=== PATIENT | female | born 1995 | race Caucasian/White ===

== ENCOUNTER 2019-10-04 07:25 | Inpatient (IN) ==
[2019-10-04] MEDS ORDERED: RINGER'S SOLUTION,LACTATED 1,000 ML IV ONE (08:50)
[2019-10-04] MEDS ORDERED: OXYTOCIN/DEXTROSE 5%-WATER 30 UNITS/500 ML BAG IV ONE ×2 (08:50→13:24)
[2019-10-04] MEDS ORDERED: ONDANSETRON 4 MG TAB.RAPDIS PO PRN (08:50)
[2019-10-04] MEDS ORDERED: LIDOCAINE HCL 50 ML VIAL PERI PRN (08:50)
[2019-10-04] MEDS ORDERED: BUTORPHANOL TARTRATE 2 MG/ML VIAL IV PRN ×2 (08:50)
[2019-10-04] MEDS ORDERED: SERTRALINE HCL 25 MG PO SCH (09:00)
[2019-10-04] MEDS ORDERED: SERTRALINE HCL 50 MG TABLET PO SCH ×2 (09:00→09:30)
--- NOTE | 2019-10-04 09:08 | HP ---
Chief Complaint - Chief Complaint Date of Service: 10/04/19 Time of Service: 09:01 Chief Complaint: SROM History of Present Illness: 24 yo @ 38w 0d who presents to labor and delivery with rupture of membranes at 0600. She had a large gush of fluid at home. She also reports regular ctx. She denies vb. Fetus is active. Medical History (Last Reviewed 10/04/19 @ 09:04 by Gavi Curran MD) Anemia Onset Date: 07/21/19 Depression Onset Date: Unknown Surgical History: Surgical History (Last Reviewed 10/04/19 @ 09:04 by Gavi Curran MD) No pertinent past surgical history Family History: Family History (Last Reviewed 10/04/19 @ 09:04 by Gavi Curran MD) Mother Alive and well Father Alive and well Social History: (Last Reviewed 10/04/19 @ 09:04 by Gavi Curran MD) Social History: Marital status: current occupational status: employed, unemployed Service: No Tobacco: Smoking Status: Former smoker Tobacco: How many years used: 7 Alcohol: alcohol intake: former Substance Use: substance use type: does not use Dietary Habits: caffeine: Yes Review Of Systems (GEN) - Review of Systems Generalized/Overall Review: Present: No Symptoms Reported Misc: All systems neg except as marked Immunizations: IMMUNIZATION HX Immunizations Up to Date Yes History of Influenza Vaccine No Hx Pneumococcal Vaccination No Allergies/Adverse Reactions: Allergies Allergy/AdvReac Type Severity Reaction Status Date / Time No Known Allergies Allergy Verified 09/28/19 16:02 Home Medications: HOME MEDICATIONS ferrous sulfate 325 mg (65 mg iron) tablet 325 mg PO DAILY #30 tab 07/21/19 [Last Taken 10/03/19 12:00] sertraline 25 mg tablet 25 mg PO DAILY #30 tab 08/03/19 [Last Taken 10/03/19 10:00] sertraline 50 mg tablet 50 mg PO DAILY #30 tab 08/03/19 [Last Taken 10/03/19 10:00] Vits96/Iron Fum/Folic [ S] 1 tab PO DAILY 09/22/19 [Last Taken 09/21/19 23:00] Exam - Exam Vital Signs: Vital Signs - Last Taken Temp 37.0 C 10/04/19 08:54 Pulse 78 10/04/19 08:54 Resp 18 10/04/19 08:54 BP 131/85 10/04/19 08:54 Pulse Ox 98 10/04/19 08:54 Constitutional: Present: Alert, Oriented x3, Cooperative, No distress ENT Exam: Present: hearing grossly normal Respiratory: Present: lungs clear, normal breath sounds Cardiovascular/Chest: Present: regular rate, rhythm Abdomen: Present: soft, nontender, nondistended Extremity: Present: non-tender, no calf tenderness Skin Exam: Present: normal color, warm/dry, no cyanosis Appearance: Present: appropriate appearance Eye contact: Present: cooperative Thoughts: Present: normal thought pattern Assessment/Plan - Narrative Narrative: 24 year old at 38w 0d 1. SROM and labor: Reassess cervical exam in 2 hours and if no cervical change will start pitocin 2. GBS negative: prophylaxis not indicated 3. Anemia on PO iron 4. Depression on sertraline 75 mg PO daily. Sertraline restarted on admission
[2019-10-04 09:10] LABS: Cocaine Ur Negative (NEGATIVE); Urine Barbiturate Negative (NEGATIVE); Urine Benzodiazepines Negative (NEGATIVE); Urine Opiates Negative (NEGATIVE); Urine PCP Negative (NEGATIVE); Urine THC Negative (NEGATIVE)
[2019-10-04] MEDS ORDERED: BUPIVACAINE HCL/0.9 % NACL/PF 250 ML EP PRN (09:21)
[2019-10-04] MEDS ORDERED: NALOXONE HCL 1 MG/1 ML SYRG IV PRN (09:21)
[2019-10-04] MEDS ORDERED: ONDANSETRON HCL/PF 2 MG/ML VIAL IV PRN (09:21)
--- NOTE | 2019-10-04 09:23 | ANES ---
Anesthesia Pre Procedure Eval Vitals/Labs: Last Vital Signs Temp 37.0 C 10/04/19 08:54 Pulse 78 10/04/19 08:54 Resp 18 10/04/19 08:54 BP 131/85 10/04/19 08:54 Pulse Ox 98 10/04/19 08:54 HOME MEDICATIONS ferrous sulfate 325 mg (65 mg iron) tablet 325 mg PO DAILY #30 tab 07/21/19 [Last Taken 10/03/19 12:00] sertraline 25 mg tablet 25 mg PO DAILY #30 tab 08/03/19 [Last Taken 10/03/19 10:00] sertraline 50 mg tablet 50 mg PO DAILY #30 tab 08/03/19 [Last Taken 10/03/19 10:00] Vits96/Iron Fum/Folic [ S] 1 tab PO DAILY 09/22/19 [Last Taken 09/21/19 23:00] Allergies/Adverse Reactions: Allergies Allergy/AdvReac Type Severity Reaction Status Date / Time No Known Allergies Allergy Verified 09/28/19 16:02 - Planned Procedure Planned Procedure: Labor epidural Medication List Reviewed:: Yes Allergies Verified: Yes Medical History (Last Reviewed 10/04/19 @ 09:04 by Gavi Curran MD) Anemia Onset Date: 07/21/19 Depression Onset Date: Unknown Surgical History (Last Reviewed 10/04/19 @ 09:04 by Gavi Curran MD) No pertinent past surgical history Family History (Last Reviewed 10/04/19 @ 09:04 by Gavi Curran MD) Mother Alive and well Father Alive and well - Anesthesia Assessment and Plan ASA Class: PS, II Anesthesia Type Plan: Epidural
[2019-10-04] MEDS ORDERED: BUPIVACAINE HCL/PF 30 ML VIAL EP SCH (09:30)
[2019-10-04] MEDS: RINGER'S SOLUTION,LACTATED 1,000 ML IV PRN ×2 (09:44→13:19)
--- NOTE | 2019-10-04 09:44 | ANES ---
Anesthesia Procedure Note Procedure Note: ANESTHESIA PROCEDURE NOTE Date of Procedure: 10/04/2019. Time of procedure: 924. Performed by: Candido Mistry CRNA Photo Machine Operator: None. Preprocedure diagnosis: Active labor. Post procedure diagnosis: Same. Procedure: Insertion of labor epidural. Indications: The patient is a 24-year-old female in active labor requesting labor epidural for pain management. Findings: See below. Details of the procedure: The patient was placed in a sitting position. DuraPrep as well as Betadine swabs X3 was applied to the patient's back. Patient was then draped in a sterile fashion. Lidocaine 1% was infiltrated to the skin and subcutaneous tissues at the level of the L3-4 interspace. The epidural space was identified using a 18-gauge Tuohy needle with [id number] technique. Epidural catheter was inserted to a depth of 10 centimeters at skin. Negative test dose was elicited using 3 mL of 1.5% preservative-free lidocaine plus epinephrine 1 200,000. The epidural catheter was then taped and secured in place. A loading dose of 8 mL of 0.25% preservative-free bupivacaine was administered to the epidural catheter after negative aspiration for blood and CSF. EBL: Minimal. Fluids: N/A. Specimen: N/A. Post procedure condition: The patient tolerated the procedure well. No complications were noted. Thank you for this consultation. Candido Mistry CRNA
--- NOTE | 2019-10-04 09:45 | ANES ---
Post Anesthesia Assessment - Vital Signs Vitals: Last Vital Signs Temp 37.0 C 10/04/19 08:54 Pulse 78 10/04/19 08:54 Resp 18 10/04/19 08:54 BP 131/85 10/04/19 08:54 Pulse Ox 98 10/04/19 08:54 Airway Patency: Normal - Mental Status Level Of Consciousness: Awake - N/V Assessment Nausea/Vomiting Presence: None Dehydration:: No
[2019-10-04] MEDS ORDERED: BUPIVACAINE HCL/PF 30 ML VIAL EP ONE (12:43)
--- NOTE | 2019-10-04 13:04 | ANES ---
Anesthesia Procedure Note Procedure Note: ANESTHESIA PROCEDURE NOTE Date of Procedure: 10/04/2019. Time of procedure: 1245. Performed by: Candido Mistry CRNA Service Shop Foreman: None. Preprocedure diagnosis: Active labor, labor pain unrelieved with epidural infusion. Post procedure diagnosis: Same. Procedure: Removal of indwelling epidural catheter and reinsertion of labor epidural. Indications: The patient is a 24-year-old female in active labor stating pain is unrelieved by indwelling epidural catheter infusion. Findings: See below. Details of the procedure: The patient was placed in a sitting position. The indwelling epidural catheter was removed intact. DuraPrep as well as Betadine swabs X3 was applied to the patient's back. Patient was then draped in a sterile fashion. Lidocaine 1% was infiltrated to the skin and subcutaneous tissues at the level of the L3-4 interspace. The epidural space was identified using a 18-gauge Tuohy needle with [id number] technique. Epidural catheter was inserted to a depth of 12 centimeters at skin. Negative test dose was elicited using 3 mL of 1.5% preservative-free lidocaine plus epinephrine 1 200,000. The epidural catheter was then taped and secured in place. A loading dose of 8 mL of 0.25% preservative-free bupivacaine was administered to the epidural catheter after negative aspiration for blood and CSF. EBL: Minimal. Fluids: N/A. Specimen: N/A. Post procedure condition: The patient tolerated the procedure well. No complications were noted. Thank you for this consultation. Candido Mistry CRNA
[2019-10-04] MEDS ORDERED: GLYCERIN/WITCH HAZEL LEAF 40 APPL BOX TP PRN (13:24)
[2019-10-04] MEDS ORDERED: diphenhydrAMINE HCL 25 MG CAPSULE PO PRN (13:24)
[2019-10-04] MEDS ORDERED: BISACODYL 10 MG SUPP.RECT RC PRN (13:24)
[2019-10-04] MEDS ORDERED: HYDROcodone/ACETAMINOPHEN 1 EACH TABLET PO PRN ×2 (13:24)
[2019-10-04] MEDS ORDERED: HYDROCORTISONE 30 APPL TUBE TP PRN (13:24)
[2019-10-04] MEDS ORDERED: BENZOCAINE/MENTHOL 81 SPRAY CAN TP PRN (13:24)
[2019-10-04] MEDS ORDERED: SENNOSIDES 8.6 MG TABLET PO PRN (13:24)
--- NOTE | 2019-10-04 13:24 | OR ---
Operative Report - Dictated Report Narrative: Date of delivery: 10/04/2019 Time of delivery: 1301 Gender: male weight: 3092 grams APGARS: 8/9 Procedure: Description of the procedure: The patient is a 24 year old at 38w 0d who presented ruptured and in labor. She did not require augmentation with pitocin. She progressed to complete dilation. She delivered a viable male in JC presentation. The cord was tight at the perineum and could not be reduced. The cord was cut at the perineum. The shoulders delivered without difficulty as did the rest of the . The placenta delivered by expression and appeared intact. EBL: 100 mL Lacerations: none Complications: none History for MU Definition: * The number of deliveries resulting in a live the patient experienced prior to current hospitalization * The previous delivery of live twins or any live multiple gestation is considered one live event. *If primagravida or nulliparous is documented select zero for the number of previous live births. Live Events: 1
[2019-10-04] MEDS: PRENATAL VITS96/IRON FUM/FOLIC 1 TAB TABLET PO SCH (14:14)
[2019-10-04] MEDS: IBUPROFEN 800 MG TABLET PO PRN (19:40)
[2019-10-04] MEDS: SERTRALINE HCL 50 MG TABLET PO SCH ×2 (21:50→21:51)
[2019-10-04] MEDS: DOCUSATE SODIUM 100 MG CAPSULE PO SCH (21:52)
[2019-10-05] MEDS: IBUPROFEN 800 MG TABLET PO PRN ×4 (02:18→22:32)
[2019-10-05] MEDS: DOCUSATE SODIUM 100 MG CAPSULE PO SCH ×2 (09:17→20:59)
[2019-10-05] MEDS: PRENATAL VITS96/IRON FUM/FOLIC 1 TAB TABLET PO SCH (09:17)
--- NOTE | 2019-10-05 12:35 | PN ---
Subjective - Date and Time Seen Date: 10/05/19 Time: 09:00 Subjective Narrative: Patient without complaints Objective Objective Narrative: See vital signs - Review of Systems Generalized/Overall Review: Reports: No Symptoms Reported Misc: All systems neg except as marked - Vitals Vitals: Last Vital Signs Temp 36.5 C 10/05/19 08:12 Pulse 60 10/05/19 08:12 Resp 18 10/05/19 08:12 BP 126/85 10/05/19 08:12 Pulse Ox 99 10/05/19 08:12 - Exam Constitutional: Present: Alert, Oriented x3, Cooperative, No distress Abdomen: Present: soft, nontender, nondistended - fundus is firm Extremity: Present: non-tender, no calf tenderness Skin Exam: Present: normal color, warm/dry, no cyanosis Appearance: Present: appropriate appearance Eye contact: Present: cooperative Thoughts: Present: normal thought pattern Assessment/Plan Plan Narrative: PPD 1 s/p Doing well Discharge tomorrow
[2019-10-05] MEDS: SERTRALINE HCL 50 MG TABLET PO SCH ×2 (20:59→21:00)
[2019-10-06 06:51] VITALS: BP 132/85
--- NOTE | 2019-10-06 08:39 | PN ---
Subjective - Date and Time Seen Date: 10/06/19 Time: 08:38 Subjective Narrative: Patient without complaints Objective Objective Narrative: See vital signs - Review of Systems Generalized/Overall Review: Reports: No Symptoms Reported Misc: All systems neg except as marked - Vitals Vitals: Last Vital Signs Temp 36.3 C 10/06/19 06:49 Pulse 64 10/06/19 06:49 Resp 16 10/06/19 06:49 BP 132/85 10/06/19 06:49 Pulse Ox 100 10/06/19 06:49 - Exam Constitutional: Present: Alert, Oriented x3, Cooperative Abdomen: Present: soft, nontender, nondistended - fundus is firm Extremity: Present: non-tender, no calf tenderness Skin Exam: Present: normal color, warm/dry, no cyanosis Appearance: Present: appropriate appearance Eye contact: Present: cooperative Thoughts: Present: normal thought pattern Assessment/Plan Plan Narrative: PPD 2 s/p Doing well Discharge home Follow-up in 4 weeks
== END 2019-10-06 12:15 | disposition home or self-care (01) | DRG 807 ==
LOC: OB 07:25
PROVIDERS: ADMIT Obstetrics & Gynecology; ATTEND Obstetrics & Gynecology
CPT/HCPCS: 59025; 80307; 86850